=== PATIENT | female | born 1985 | race Caucasian/White ===

== ENCOUNTER → 2023-11-10 | Outpatient (REF) | payer SELFPAY ==
[~2023-11-10] MED LIST: IOPAMIDOL 370 MG/ML 100 ML INFUS..BTL INJ ONE
== END ==
LOC: DX 09:16
PROVIDERS: ATTEND Obstetrics & Gynecology
DX: Z31.41 Encounter for fertility testing (principal)
CPT/HCPCS: 74740; 81025; Q9967